=== PATIENT | male | born 1985 | race Caucasian/White ===

== ENCOUNTER 2022-06-14 12:22 | Emergency (ER) | payer OTHER, SELFPAY ==
[2022-06-14 12:37] VITALS: BP 151/97; PULSE 77; RESP 16; TEMP 36.7; O2SAT 96
--- NOTE | 2022-06-14 12:38 | XR_ITS ---
WS: [id number] XR shoulder LT min 2V* [id number] REASON FOR EXAM: injury FINDINGS: Anterior dislocation of the humerus from the glenoid. No definite fracture of the glenoid or the nilda dixie identified on the available views. Old healed fracture of the clavicle. No acute fracture. Osteoarthritis of the acromioclavicular joint with no acute normality identified. XR/XR shoulder LT min 2V* [id number] IMPRESSION: Anterior shoulder dislocation.
--- NOTE | 2022-06-14 12:48 | ED_ITS ---
HPI - Extremity Problem General: Chief complaint: Extremity Injury, Upper Stated complaint: left hand injury Time Seen by Provider: 06/14/22 12:30 Source: patient Mode of arrival: ambulatory Limitations: no limitations History of Present Illness: 37-year-old male states that roughly 1 hour ago he rolled a dump truck. He states that he landed directly on his left shoulder dislocated his shoulder. He denies any other injuries. He denies hitting his head denies any neck pain he rates his shoulder pain a 7 out of 10 its much worse with movement and improved with rest. Associated symptoms: Deny chest pain, fever(s) or rash Review of Systems Const: Denies: fever(s), chills, body aches or change in appetite Eyes: Denies: blurry vision or eye discomfort ENMT: Denies: throat pain or dental pain Card: Denies: chest pain Resp: Denies: dyspnea GI: Denies: abdominal pain, nausea, vomiting or diarrhea : Denies: dysuria Musc: Reports: extremity pain Skin/Breast: Denies: rash Neuro: Denies: headache(s) Psych: Denies: depression Itz/Lymph: Denies: easy bruising All/Imm: Denies: urticaria PFSH ED PFSH: Medical History (Updated 06/14/22 @ 13:01 by Harvey Feldman MD) No pertinent past medical history Social History (Updated 06/14/22 @ 12:49 by Harvey Feldman MD) Substance/Drug Use: unknown Physical Exam Const: COMMON NORMALS: no acute distress, patient oriented x3 and healthy appearing HENMT: COMMON NORMALS: normocephalic and atraumatic HEAD & SCALP: normocephalic and atraumatic Eye: COMMON NORMALS: Equal, round and reactive pupils present and EOMs intact bilaterally PUPIL: Yes Equal, round and reactive pupils present Neck/C-Spine: COMMON NORMALS: full ROM and supple Chest: COMMONS NORMALS: normal inspection of the chest and normal palpation of entire chest wall Resp: COMMON NORMALS: normal respiratory effort, No retractions, No use of accessory muscles and clear to auscultation bilaterally AUSCULTATION: clear to auscultation bilaterally Cardio: COMMON NORMALS: regular rate, regular rhythm and No murmurs present (Cardio) RATE: regular rate RHYTHM: regular rhythm GI: COMMON NORMALS: Normal to inspection, nondistended, normoactive bowel sounds present, Soft to palpation, non-tender and no masses PALPATION: Yes Soft to palpation Extremity: NARRATIVE EXTREMITY EXAM: Obvious deformity dislocation left shoulder distal pulses intact Neuro: COMMON NORMALS: patient oriented x3, moves all extremities and no focal motor deficits Psych: COMMON NORMALS: mental status grossly normal, Normal thought process pr esent and cooperative THOUGHT PROCESS: Normal thought process present Skin: COMMON NORMALS: no rashes or lesions noted and no wounds GENERAL SKIN EXAM: no rashes or lesions noted Procedures Orthopedic Joint Reduction Joint #1: Time Out Performed: Yes Side: left Joint Reduction Location: shoulder Analgesia: procedural sedation Shoulder Technique Used (if applicable): traction/counter-traction Post-reduction neuro exam: intact Post-reduction vascular: intact Post Reduction X-Ray Obtained: Yes Post Reduction X-Ray Results: reduced Splint Applied: Yes Procedural Sedation Indication: fracture/dislocation reduction ASA Class: I Time of Last PO Intake: 10:00 Preparation: care companion applied and pulse oximeter IV Propofol dose (mg): 150 Patient Tolerated Procedure: well Complications: none Interventions: oxygen applied Course Vital Signs: Vital signs: Vital Signs Temperature 98.0 F 06/14/22 12:37 Pulse Rate 77 06/14/22 12:37 Respiratory Rate 16 06/14/22 12:37 Blood Pressure 151/97 06/14/22 12:37 Pulse Oximetry 96 06/14/22 12:37 Oxygen Delivery Me thod 06/14/22 12:37 MDM - Extremity (Nontraumatic) Medical Decision Making Patient presents here with shoulder dislocation was able to relocate his shoulder under conscious sedation patient stable for discharge we will get him follow-up orthopedics he is return if worsening. Lab Data Radiology Impressions Shoulder X-Ray 06/14/22 12:38 IMPRESSION: Anterior shoulder dislocation. Discharge Plan Discharge Patient Disposition: Home Clinical Impression: Dislocation of shoulder, left, closed Qualifiers: Encounter type: initial encounter Qualified Code(s): S43.005A - Unspecified dislocation of left shoulder joint, initial encounter Prescriptions: New hydrocodone-acetaminophen 5-325 mg tablet 1 tab PO Q6H PRN (Reason: pain) Qty: 14 0RF Discharge Orders: Discharge ED (Routine); Ordered 06/14/22 Ordered By: Harvey Feldman Referrals: Juwan Gupta DO [Physician] - 1-3 days Discharge Diet: Advance as tolerated Discharge Activity: Resume usual activity Patient Instructions: Shoulder Dislocation (ED) Coding Level of Care Code ED Manager Of Organizational Development for [employer] Fwd Exam Comprehensive
--- NOTE | 2022-06-14 13:05 | PC.NURSE ---
dr. conner, rt, and rn's x2 at bedside. pt is on continuous spo2, nibp, and cm. consent signed.
[2022-06-14] MEDS: propofol 10 mg/mL SDV 20 mL 100 MG IVP (13:08)
[2022-06-14] MEDS: propofol 10 mg/mL SDV 20 mL 50 MG IVP (13:08)
--- NOTE | 2022-06-14 13:10 | XR_ITS ---
WS: [id number] XR shoulder LT 1V [id number] REASON FOR EXAM: post reduction FINDINGS: Glenohumeral joint is been restored to normal anatomic alignment. No acute fracture of the glenoid or humerus identified. XR/XR shoulder LT 1V [id number] IMPRESSION: Closed reduction of left anterior humeral dislocation.
--- NOTE | 2022-06-14 13:19 | PC.NURSE ---
PT IS AWAKE ALERT AND ANSWERING QUESTIONS APPROPRIATELY. XRAY AT BEDSIDE CONFIRMING PLACEMENT OF REDUCTION.
--- NOTE | 2022-06-15 08:36 | DCPLANNER ---
Addendum entered by Fany Tao 06/22/22 15:03: marketing and public relations manager received the following message from the ortho clinic: Pt declined appt at this time Original Note: marketing and public relations manager had message to schedule a follow up appointment for patient with ortho. marketing and public relations manager sent patients information to the front office staff at ortho. Patients information will be printed and reviewed. Clinic will call patient with appointment information.
== END 2022-06-14 13:58 | disposition home or self-care (01) ==
PROVIDERS: Emergency Provider Emergency Medicine
DX: S43.005A Unspecified dislocation of left shoulder joint, initial encounter (principal); V85.5XXA Driver of special construction vehicle injured in nontraffic accident, initial encounter
CPT/HCPCS: 23650; 73020; 73030; 99285; J2704

== ENCOUNTER 2022-10-10 12:28 | Emergency (ER) | payer OTHER, SELFPAY ==
[2022-10-10] VITALS (14 sets, daily range): BP systolic 118–160; BP diastolic 70–117; PULSE 87–97; RESP 20–22; TEMP 36.8; O2SAT 92–99; BMI 28.5
--- NOTE | 2022-10-10 12:41 | XR_ITS ---
WS: [id number] EXAMINATION: XR shoulder LT min 2V* [id number] REASON FOR EXAM: Shoulder pain COMPARISON: 06/14/2022 ORDER DATE: 10/10/2022 12:47 PM TECHNIQUE: 3 views of the left shoulder were obtained. X-RAY FINDINGS: There is an anterior subcoracoid dislocation of the humeral head. Acromioclavicular joint appears unr emarkable. Limited visualization of the adjacent hemithorax is unremarkable. XR/XR shoulder LT min 2V* [id number] IMPRESSION: Anterior humeral head dislocation
--- NOTE | 2022-10-10 13:32 | ED_ITS ---
Documented by User: MARILIA Marquis 10/10/22 14:43 HPI - Extremity Problem General: Chief complaint: Extremity Injury, Upper Stated complaint: Left shoulder injury Time Seen by Provider: 10/10/22 13:21 History of Present Illness: Patient is a 37-year-old male who comes to the ED with left shoulder injury. Injury occurred just prior to arrival. He was working using some heavy machinery and states that he twisted his left shoulder while using the machinery. He feels like his shoulder is out of place. He rates his pain currently a 10 out of 10. He has had this happen before with this left shoulder and he says this feels the exact same as past left shoulder dislocation. Associated symptoms: Deny chest pain, fever(s) or rash Review of Systems Const: Denies: fever(s), chills or fatigue Eyes: Denies: change in vision or eye discomfort ENMT: Denies: throat pain, odynophagia, nasal discharge or nasal congestion Card: Denies: chest pain, palpitations, edema, swelling of feet/ankles, dyspnea on exertion or orthopnea Resp: Denies: dyspnea, productive cough or non-productive cough GI: Denies: abdominal pain, nausea, vomiting, diarrhea, constipation or hematochezia : Denies: flank pain, difficulty urinating, dysuria or hematuria Musc: Reports: extremity pain (Left shoulder pain) and limited range of motion (Left shoulder); Denies: neck pain, back pain or extremity swelling Skin/Breast: Denies: rash or new lesions Neuro: Denies: headache(s), numbness in extremities or weakness in extremities PFS ED PFSH: Medical History No pertinent family history No pertinent past medical history Physical Exam Const: COMMON NORMALS: patient oriented x3 HENMT: COMMON NORMALS: normocephalic HEAD & SCALP: normocephalic MOUTH: Normal oral and palatal mucosa present THROAT: posterior oropharynx normal and uvula midline Neck/C-Spine: COMMON NORMALS: supple GENERAL: Yes normal visual inspection Resp: COMMON NORMALS: normal respiratory effort, No retractions, No use of accessory muscles and clear to auscultation bilaterally AUSCULTATION: clear to auscultation bilaterally Cardio: COMMON NORMALS: regular rate, regular rhythm, S1 normal heart sound present, S2 normal heart sound present, No gallops present (Cardio), No clicks present (Cardio), No murmurs present (Cardio) and Peripheral pulses 2+ throughout RATE: regular rate RHYTHM: regular rhythm HEART SOUNDS: S1 normal heart sound present and S2 normal heart sound present PERIPHERAL PULSES: Peripheral pulses 2+ throughout GI: COMMON NORMALS: Normal to inspection, nondistended, normoactive bowel sounds present, Soft to palpation, non-tender and no masses PALPATION: Yes Soft to palpation : COMMON NORMALS: Yes no CVA tenderness BLADDER/KIDNEY EXAM: Yes no CVA tenderness Back/Pelvis: COMMON NORMALS: no CVA tenderness Extremity: NARRATIVE EXTREMITY EXAM: Left shoulder?neurovascular tact distally. Limited range of motion due to pain. His shoulder is an anterior position appears to be dislocated. Neuro: COMMON NORMALS: patient oriented x3 GAIT: Yes Normal gait present Skin: GENERAL SKIN EXAM: dry skin Course Vital Signs: Vital signs: Vital Signs Temperature 98.3 F 10/10/22 13:26 Pulse Rate 94 10/10/22 15:32 Respiratory Rate 22 H 10/10/22 15:24 Blood Pressure 129/70 10/10/22 15:05 Pulse Oximetry 94 10/10/22 15:32 Oxygen Delivery Me thod 10/10/22 14:40 MDM - Extremity (Nontraumatic) Medical Decision Making Patient is a 37-year-old male comes to the ED with left shoulder injury. Vitals are stable. Upon exam patient appears to have dislocated shoulder but he is neurovascular tact distally. X-ray of left shoulder shows anterior dislocation. I told Dr. Contreras about patient case and he was moved into a room so a conscious sedation and reduction of left shoulder could be performed. See Dr. Contreras's note about conscious sedation and reduction of left shoulder. Lab Data Radiology Impressions Shoulder X-Ray 10/10/22 14:48 IMPRESSION: No fractures or dislocations of the left shoulder. Discharge Plan Discharge Patient Disposition: Home Clinical Impression: Dislocated shoulder Condition: Stable Prescriptions: New hydrocodone-acetaminophen 5-325 mg tablet 1 tab PO Q6H PRN (Reason: pain) Qty: 14 0RF Discontinued hydrocodone-acetaminophen 5-325 mg tablet 1 tab PO Q6H PRN (Reason: pain) Qty: 14 0RF Discharge Orders: Discharge ED (Routine); Ordered 10/10/22 Ordered By: Jesse Contreras Patient Instructions: Opioid Safety, Pain Management Activity Restrictions/Additional Instructions: You are seen today for a left shoulder dislocation. Recommend you wear the shoulder immobilizer until released by orthopedics. Case management will make arrangements for you to see orthopedics in follow-up. Do not use the left hand for any lifting or activities until released by orthopedics. Coding Level of Care Code ED Network Firewall Engineer for Chg Fwd Exam Comprehensive Documented by User: Jesse Contreras DO 10/19/22 11:44 HPI - Extremity Problem General: Chief complaint: Extremity Injury, Upper Stated complaint: Left shoulder injury Time Seen by Provider: 10/10/22 13:21 Source: patient Mode of arrival: ambulatory History of Present Illness: Patient is a 37-year-old male who comes to the ED with left shoulder injury. Injury occurred just prior to arrival. He was working using some heavy machinery and states that he twisted his left shoulder while using the machinery. He feels like his shoulder is out of place. He rates his pain currently a 10 out of 10. He has had this happen before with this left shoulder and he says this feels the exact same as past left shoulder dislocation. Care assumed from MARILIA Marquis. Patient initially seen by johny in [facility] and found to have an anterior shoulder dislocation. He has had previously this occurred while he was using some heavy machinery. Patient in significant pain. He is splinting his left arm against his body. MD Complaint: joint pain Onset (ago): hour(s) Pain Consistency: constant Location: left (Shoulder) Quality: sharp Relieving factors: immobilization Exacerbating factors: range of motion and palpation Associated symptoms: Deny chest pain, fever(s) or rash Review of Systems Const: Denies: fever(s), chills, body aches, change in appetite, fatigue or malaise ENMT: Denies: throat pain, ear or mastoid pain, nasal discharge or nasal congestion Card: Denies: chest pain, edema, dyspnea on exertion or orthopnea Resp: Denies: dyspnea, productive cough or non-productive cough GI: Denies: abdominal pain, nausea, vomiting, hematemesis, coffee ground emesis, diarrhea, constipation, bloating, hematochezia or melena : Denies: flank pain, dysuria, urinary frequency or urinary urgency Musc: Reports: extremity pain, extremity swelling, joint pain and joint swelling Skin/Breast: Denies: rash or pruritus PFSH ED PFSH: Medical History No pertinent family history No pertinent past medical history Procedures Orthopedic Joint Reduction Joint #1: Time Out Performed: Yes Side: left Joint Reduction Location: shoulder Analgesia: procedural sedation Shoulder Technique Used (if applicable): traction/counter-traction Technique used: traction/counter-traction Post-reduction neuro exam: intact Post-reduction vascular: intact Post Reduction X-Ray Obtained: Yes Post Reduction X-Ray Results: reduced Splint Applied: Yes Procedural Sedation Indication: fracture/dislocation reduction Preparation: charhouse worker applied, pulse oximeter, supplemental O2 applied, suction/airway equipment at bedside and IV secured Fentanyl: IV Midazolam: IV Patient Tolerated Procedure: well Complications: hypoxia (Transient) Interventions: oxygen applied and airway repositioned Additional Comments: Sedation patient had brief transient hypopnea. This was relieved by repositioning and oxygen patient otherwise tolerated well no complications Course Vital Signs: Vital signs: Vital Signs Temperature 98.3 F 10/10/22 13:26 Pulse Rate 94 10/10/22 15:32 Respiratory Rate 22 H 10/10/22 15:24 Blood Pressure 129/70 10/10/22 15:05 Pulse Oximetry 94 10/10/22 15:32 Oxygen Delivery La thod 10/10/22 14:40 MDM - Extremity (Nontraumatic) Medical Decision Making Patient is a 37-year-old male comes to the ED with left shoulder injury. Vitals are stable. Upon exam patient appears to have dislocated shoulder but he is neurovascular tact distally. X-ray of left shoulder shows anterior dislocation. I told Dr. Contreras about patient case and he was moved into a room so a conscious sedation and reduction of left shoulder could be performed. See Dr. Contreras's note about conscious sedation and reduction of left shoulder. Lab Data Radiology Impressions Shoulder X-Ray 10/10/22 14:48 IMPRESSION: No fractures or dislocations of the left shoulder. Discharge Plan Discharge Patient Disposition: Home Clinical Impression: Dislocated shoulder Condition: Stable Prescriptions: New hydrocodone-acetaminophen 5-325 mg tablet 1 tab PO Q6H PRN (Reason: pain) Qty: 14 0RF Discontinued hydrocodone-acetaminophen 5-325 mg tablet 1 tab PO Q6H PRN (Reason: pain) Qty: 14 0RF Discharge Orders: Discharge ED (Routine); Ordered 10/10/22 Ordered By: Jesse Contreras Patient Instructions: Opioid Safety, Pain Management Activity Restrictions/Additional Instructions: You are seen today for a left shoulder dislocation. Recommend you wear the shoulder immobilizer until released by orthopedics. Case management will make arrangements for you to see orthopedics in follow-up. Do not use the left hand for any lifting or activities until released by orthopedics. Coding Level of Care Code ED Network Firewall Engineer for Pricilla Hdz Exam Comprehensive
[2022-10-10] MEDS: morphine 4 mg/mL SDV 1 mL IM (13:40)
[2022-10-10] MEDS: midazolam 1 mg/mL INJ 2 mL 4 MG IVP (14:40)
--- NOTE | 2022-10-10 14:48 | XR_ITS ---
WS: [id number] EXAMINATION: XR shoulder LT min 2V* [id number] REASON FOR EXAM: post reduction COMPARISON: None available. ORDER DATE: 10/10/2022 2:52 PM TECHNIQUE: 3 views of the left shoulder were obtained. X-RAY FINDINGS: No fractures or dislocations complete reduction. Normal motion of the shoulder with internal/external rotation. No degenerative changes. Acromioclavicular joint appears unremarkable. Limited visualization of the adjacent hemithorax is unremarkable except for the old healed left clavi jaycob fracture deformity. XR/XR shoulder LT min 2V* [id number] IMPRESSION: No fractures or dislocations of the left shoulder.
[2022-10-10] MEDS: fentaNYL 50 mcg/mL INJ 2mL 100 MCG IVP (15:24)
--- NOTE | 2022-10-11 08:25 | DCPLANNER ---
Addendum entered by Fany Tao 11/02/22 14:47: Patient had a follow up appointment scheduled with ortho - patient did not attend appointment. Addendum entered by Fany Tao 10/12/22 13:33: Patient has a follow up appointment scheduled for , October 18, 2022 at 10:00 with Tate at ortho. Clinic will call patient with appointment information. Original Note: traffic operations manager had message to schedule a follow up appointment for patient with ortho. traffic operations manager sent patients information to the front office staff at ortho. Patients information will be printed and reviewed. Clinic will call patient with appointment information.
== END 2022-10-10 15:30 | disposition home or self-care (01) ==
PROVIDERS: Emergency Provider Family Medicine
DX: S43.005A Unspecified dislocation of left shoulder joint, initial encounter (principal); X50.1XXA Overexertion from prolonged static or awkward postures, initial encounter; Y99.0 Civilian activity done for income or pay
CPT/HCPCS: 23650; 73030; 96372; J2250; J2270; J3010